=== PATIENT | female | born 1955 | race Caucasian/White ===

== ENCOUNTER 2020-02-04 11:13 | Outpatient (CLI) | payer BC, SELFPAY ==
--- NOTE | ~2020-02-04 | MMUS_ITS ---
EXAMINATION: MM diagnostic damien LT w phuong, US breast bilateral limited HISTORY: Follow-up breast masses TECHNIQUE: Additional 3-D tomosynthesis images of the left breast were performed and synthetic 2-D im ages were generated. CAD analysis was submitted and interpreted. High resolution bilateral breast ult rasound was performed. COMPARISON: Comparison to multiple prior studies sequentially, with oldest reviewed study dated 05/06. FINDINGS: MAMMOGRAPHIC FINDINGS: Breast composed of scattered areas of fibroglandular density. Stable benign-appearing masses in the u pper outer quadrant of the left breast. ULTRASOUND: Right breast ultrasound: At 8:00, 3 cm from the nipple there is a 4 mm cyst. At 9:00, 0.5 cm from the nipple, there is a 7 mm intramammary lymph node. Left breast ultrasound: At 12:00, 5.5 cm from the nipple there is a 6 mm cyst. At 2:00, 2 cm from the nipple, there is a 6 mm minimally complicated cyst. At 3:00, 0.5 cm from the nipple there is a small intramammary lymph node measuring 4 mm, unchanged. The small hypoechoic lesion in the left breast at 2:00 with antiparallel configuration is not identified on the current study. IMPRESSION: 1. No evidence for malignancy in either breast. Benign findings. 2. Routine yearly screening mammogram and regular clinical breast examination are recommended. BI-RADS Category 2: Benign finding(s). Reviewed, dictated and finalized at location A. IMPRESSION: 1. No evidence for malignancy in either breast. Benign findings. 2. Routine yearly screening mammogram and regular clinical breast examination a re recommended. BI-RADS Category 2: Benign finding(s).
== END 2020-02-04 11:14 | disposition home or self-care (01) ==
PROVIDERS: PCP Family Medicine; Visit Provider Obstetrics & Gynecology
DX: R92.8 Other abnormal and inconclusive findings on diagnostic imaging of breast (principal)
CPT/HCPCS: 76642; 77061; 77065; G0279

== ENCOUNTER 2020-06-06 12:38 | Outpatient (NON) | payer BC, SELFPAY ==
[2020-06-08 18:20] LABS: SARS-CoV-2 RNA PCR Negative
== END 2020-06-06 12:39 ==
LOC: ANHCOVIDDT 12:39
PROVIDERS: PCP Family Medicine; Visit Provider Physician Assistant
DX: Z20.828 Contact with and (suspected) exposure to other viral communicable diseases (principal); R05 Cough
CPT/HCPCS: 87635; C9803; U0003

== ENCOUNTER → 2021-07-25 10:17 | Outpatient (CLI) | payer MEDICARE, SELFPAY ==
--- NOTE | ~2021-07-25 | MM_ITS ---
EXAMINATION: MM screening [facility] BI w phuong HISTORY: Screening mammogram TECHNIQUE: Craniocaudal and mediolateral oblique 3-D tomosynthesis images were obtained and synthetic 2-D images were generated. CAD analysis was submitted and interpreted. COMPARISON: 02/04/2020, 08/13/2019, 07/25/2019, 07/23/2018 BREAST PARENCHYMAL COMPOSITION: There are scattered areas of fibroglandular density. FINDINGS: RIGHT BREAST: There are low-density masses in the middle third of the upper, slightly inner breast. LEFT BREAST: There is no evidence of suspicious mass, calcification, or architectural distortion to s uggest malignancy. There has been no significant interval change. IMPRESSION: 1. Right breast masses. 2. Additional mammographic views and possible breast ultrasound are recommended. BI-RADS Category 0: Incomplete: Needs additional imaging evaluation. Reviewed, dictated and finalized at location A. ESSING LEAD IMPRESSION: 1. Right breast masses. 2. Additional mammographic views and possible breast ultrasound are recommended . BI-RADS Category 0: Incomplete: Needs additional imaging evaluation.
== END ==
PROVIDERS: PCP Family Medicine; Visit Provider Obstetrics & Gynecology
DX: Z12.31 Encounter for screening mammogram for malignant neoplasm of breast (principal); R92.8 Other abnormal and inconclusive findings on diagnostic imaging of breast
CPT/HCPCS: 77063; 77067

== ENCOUNTER → 2021-08-02 09:16 | Outpatient (CLI) | payer MEDICARE, SELFPAY ==
--- NOTE | ~2021-08-02 | MMUS_ITS ---
EXAMINATION: MM diagnostic damien RT w phuong, US breast RT limited HISTORY: Follow-up right breast mass TECHNIQUE: Additional 3-D tomosynthesis images of the right breast were performed and synthetic 2-D i mages were generated. CAD analysis was submitted and interpreted. High resolution Limited right breas t ultrasound was performed. COMPARISON: 07/25/2021 BREAST PARENCHYMAL COMPOSITION: Breast composed of scattered areas of fibroglandular density FINDINGS: MAMMOGRAPHIC FINDINGS: There is a mass in the medial aspect of the right breast posteriorly. There are no suspicious calcifi cations or architectural distortion. ULTRASOUND: Limited right breast ultrasound: At 12:00, 5 cm from the nipple there is a 5 mm cyst. At 12:00, 4 cm from the nipple there is a 3 mm cyst. At 1:00, 3 cm from the nipple there is an oval hypoechoic mass with focal internal echogenic area. There is parallel orientation. There is posterior acoustic shadow ing with internal vascularity along the margin. This mass measures 6 x 5 x 4 mm. IMPRESSION: 1. Abnormal hypoechoic 6 mm left breast mass at 1:00, 3 cm from the nipple. 2. Ultrasound-guided right breast biopsy recommended. BI-RADS category 4, suspicious findings. Reviewed, dictated and finalized at location A. ERY HAND IMPRESSION: 1. Abnormal hypoechoic 6 mm left breast mass at 1:00, 3 cm from the nipple. 2. Ultrasound-guided right breast biopsy recommended. BI-RADS category 4, suspicious findings.
== END ==
PROVIDERS: PCP Family Medicine; Visit Provider Obstetrics & Gynecology
DX: R92.8 Other abnormal and inconclusive findings on diagnostic imaging of breast (principal)
CPT/HCPCS: 76642; 77061; 77065; G0279

== ENCOUNTER 2021-08-12 08:00 | Emergency (ER) | payer MEDICARE, SELFPAY ==
--- NOTE | ~2021-08-12 | XR_ITS ---
EXAMINATION: XR chest 1V portable DATE: 08/12/2021 08:59 INDICATION: Shortness of breath. Cough. TECHNIQUE: A single frontal view of the chest was obtained. COMPARISON: None. FINDINGS: The chest demonstrates clear lungs without pneumonia, pleural effusion, or pneumothorax. Th e heart size is normal. IMPRESSION: 1. No acute cardiopulmonary disease. Reviewed, dictated and finalized at location A. NE RESOURCE ECONOMIST
[2021-08-12 08:04] VITALS: BP 135/85; PULSE 115; RESP 18; TEMP 36.7; O2SAT 100
--- NOTE | 2021-08-12 08:40 | ED.SOB ---
HPI - SOB/Dyspnea General Chief Complaint: Shortness of Breath/Dyspnea Stated Complaint: dysnpea Time Seen by Provider: 08/12/21 08:06 Source: patient and RN notes reviewed Mode of arrival: ambulatory Limitations: no limitations History of Present Illness HPI Narrative: This is a 66 year old female who presents for evaluation of cough and shortness of breath. Patient was exposed to daughter and grandchild last weekend who were found to have covid. Patient developed symptoms of possible covid on Saturday. She reports sore throat, cough and shortness of breath. She took an at home test on Saturday that was negative for covid. She states last night she was having worsening difficulty breathing and she felt like she needed to sit up. She denies nausea, vomiting, fever, chest pain or abdominal pain. Related Data Allergies Allergy/AdvReac Type Severity Reaction Status Date / Time No Known Allergies Allergy Verified 08/12/21 08:29 Review of Systems Review of Systems: All systems reviewed & are unremarkable except as noted in HPI and below PMFSH Past Medical History Medical History (Updated 08/12/21 @ 11:38 by Mariaa Law MD) Cough Essential hypertension Hypothyroidism Stenosis of larynx Family History Family History Sibling Hypertension Mother Family history of kidney disease Father Family history of lung disease Social History Social History (Updated 06/22/21 @ 13:22 by Rylee Bernard MA) Smoking status: Never smoker Second hand tobacco smoke exposure: No Alcohol intake: current Alcohol use details: rare Substance use: never Substance use type: does not use Gender identity (if verbalized by the patient): Female Sexual Orientation (if Verbalized by the Patient): Straight or Heterosexual Exam Const: General: no acute distress and alert Orientation/consciousness: patient oriented x3 HENMT: Head: normocephalic and atraumatic Face and sinus: normal facial exam, sinuses nontender and face symmetric Mouth: Yes Normal oral and palatal mucosa present, Yes lip normal, Yes tongue normal and Yes moist mucous membranes Throat: posterior oropharynx normal, tonsils normal and uvula midline Chest: Chest palpation & inspection: normal inspection of the chest Resp: Effort & Inspection: normal respiratory effort and no retractions Auscultation: clear to auscultation bilaterally Other: no stridor Cardio: Rate: tachycardic Rhythm: regular rhythm Heart sounds: no murmurs GI: GI Palp: Yes Soft to palpation, No Tenderness to palpation present (GI) and No Guarding due to palpation present (GI) Auscultation: normal bowel sounds Back/Spine/Pelvis: Back: no CVA tenderness Skin: General skin exam: normal color Rashes: no rashes Neuro: General: patient oriented x3, moves all extremities and CN's II-XI intact bilaterally Extrem: General: normal to inspection and no pedal edema Psych: Mental Status: mental status grossly normal Affect: normal affect Course Reevaluation(s) Reevaluation #1: I Discussed with patient that she will be discharged and she is positive for covid. I ambulated patient and she maintained oxygenation at 99% with walking. No respiratory distress. She states she feels better after using inhaler. Date: 08/12/21 Time: 11:37 Vital Signs Vital signs: Vital Signs Temperature 98.0 F 08/12/21 08:04 Pulse Rate 115 H 08/12/21 08:04 Respiratory Rate 18 08/12/21 08:04 Blood Pressure 135/85 08/12/21 08:04 Pulse Oximetry 100 08/12/21 08:04 Temperature 98.0 F 08/12/21 08:04 Pulse Rate 92 08/12/21 11:49 Respiratory Rate 16 08/12/21 11:49 Blood Pressure 138/70 08/12/21 11:49 Pulse Oximetry 98 08/12/21 11:49 MDM - SOB/Dyspnea Lab Data Attestation: I reviewed the patient's lab results. Result diagrams: 08/12/21 10:53 08/12/21 10:53 Labs: Lab Resu
[2021-08-12] MEDS: ALBUTEROL SULFATE (*SP) AEROSOL 1 PUFF 4 PUFF INHALATION (09:22)
[2021-08-12 09:33] LABS: SARS-CoV-2 RNA PCR Positive
[2021-08-12 09:34] LABS: Alveolar/Arterial O2 Gradient 16.8 mmHg; Base Excess ABG -0.5 mEq/l (+/-2.0); Carboxyhemoglobin 0.2 % THb (0-2.0); Fractional Inspired Oxygen 21 %; HCO3 ABG 23.8 mEq/l (22.0-26.0); Methemoglobin ABG 0.3 %THb (0-1.5); Oxygen Saturation ABG 96.8 % (95.0-100.0); Oxyhemoglobin 95.6 % THb (90.0-100.0); PO2 ABG 87.4 mmHg (80.0-100.0); PO2 FiO2 Ratio Arterial Blood 4.16 %; Reduced Hemoglobin 3.9 %THb (0-5.0); Total Hemoglobin 14.1 g/dL (12.0-18.0); pH ABG 7.415 (7.350-7.450)
[2021-08-12 09:35] LABS: Device ROOM AIR; Site Drawn LEFT BRACHIAL
[2021-08-12 11:00] LABS: Basophils Percent Auto 0.4 % (0.2-1.2); Eosinophils Percent Auto 0.2 % (0-4.4); Hemoglobin 13.9 g/dL (12.0-15.0); Immature Granulocyte Absolute 0.04 K/mm3 (0.00-0.031); Immature Granulocyte Percent A 0.5 % (0-0.5); Lymphocytes Absolute Auto 1.36 K/mm3 (0.9-3.2); Lymphocytes Percent Auto 16.4 % (18.3-44.2); Mean Corpuscular HGB Conc 33.1 g/dl (32-36); Mean Corpuscular Hemoglobin 29.8 pg (26-34); Mean Corpuscular Volume 90.1 fl (80-100); Mean Platelet Volume 9.9 fl (7.4-10.4); Monocytes Absolute Auto 0.7 K/mm3 (0.1-0.6); Monocytes Percent Auto 8.4 % (2.6-8.5); Neutrophils Absolute Auto 6.2 K/mm3 (1.3-6.7); Neutrophils Percent Auto 74.1 % (45.5-73.1); Platelet Count Result 187 k/mm3 (150-375); Red Blood Count 4.66 M/mm3 (4.2-5.4); Red Cell Distribution Width 12.1 % (11.5-14.5); White Blood Count 8.3 K/mm3 (4.5-10.0)
[2021-08-12 11:09] LABS: Partial Thromboplastin Time 25.5 SECONDS (22.3-36.8)
[2021-08-12 11:13] LABS: Alanine Aminotransferase 19 U/L (4-35); Albumin Level 4.7 g/dL (3.5-5.1); Alkaline Phosphatase 90 U/L (38-126); Anion Gap 12 mmol/L (8-16); Aspartate Amino Transferase 26 U/L (14-36); Bilirubin,Total 0.4 mg/dL (0.2-1.3); Blood Urea Nitrogen 17 mg/dL (7-17); CRP 1.7 mg/dL (<1.0); Calcium 9.5 mg/dL (8.4-10.2); Carbon Dioxide 27 mmol/L (22-30); Chloride 99 mmol/L (98-107); Estimated CRCL calculation 50 ml/min; Estimated Glomerular Filt Rate > 60; Glucose 136 mg/dL (65-110); Potassium 3.9 mmol/L (3.4-5.0); Sodium 138 mmol/L (137-145)
[2021-08-12 11:15] LABS: D Dimer 0.27 ug/mL (<0.48)
[2021-08-12 11:49] VITALS: BP 138/70; PULSE 92; RESP 16; O2SAT 98
== END 2021-08-12 11:54 | disposition home or self-care (01) ==
PROVIDERS: Emergency Provider General Practice; PCP Family Medicine
DX: U07.1 COVID-19 (principal); J06.9 Acute upper respiratory infection, unspecified; I10 Essential (primary) hypertension; E03.9 Hypothyroidism, unspecified
CPT/HCPCS: 36415; 36600; 71045; 80053; 82375; 82805; 83050; 85025; 85380; 85610; 85730; 86140; 87804; 99283; A9270; C9803; U0003; U0005

== ENCOUNTER → 2021-10-20 18:01 | Outpatient (CLI) | payer MEDICARE, SELFPAY ==
--- NOTE | ~2021-10-20 | DEXA_ITS ---
Bone Density Report Name: ALICE CHOW Age: 66 Sex: Female Ethnicity: White Date of : 1955 Indication: monitoring treatment; hysterectomy; postmenopausal Referring Provider: Andreina, Tammie Brantley Study: Bone densitometry was performed. Exam Date: October 20, 2021 Accession number: [id number] Bone Density: Region BMD T-score Z-score Classification AP Spine (L1-L4) 1.302 2.3 4.1 Normal Femoral Neck (Left) 0.761 -0.8 0.7 Normal Total Hip (Left) 1.033 0.7 2.0 Normal Femoral Neck (Right) 0.702 -1.3 0.2 Osteopenia Total Hip (Right) 0.959 0.1 1.4 Normal Total Hip Mean 0.996 0.4 1.7 Normal World Health Organization criteria for BMD impression classify patients as: Normal (T-score at or above -1.0), Osteopenia (T-score between -1.0 and -2.5), or Osteoporosis (T-score at or below -2.5). 10-year Fracture Risk: FRAX not reported because: Treated for osteoporosis Previous Exams: Region Exam Age BMD T-score BMD Change BMD Change Date g/cm2 vs Baseline vs Previous AP Spine(L1-L4) 10/20/2021 66 1.302 2.3 0.058* 0.058* 12/16/2012 57 1.244 1.8 Total Hip(Left) 10/20/2021 66 1.033 0.7 0.025 0.025 12/16/2012 57 1.008 0.5 Total Hip(Right) 10/20/2021 66 0.959 0.1 0.006 0.006 12/16/2012 57 0.953 0.1 *Denotes significance at 95% confidence level, LSC for AP Spine = 0.022 g/cm2, LSC for Total Hip = 0.027 g/cm2 Clinical Information Provided by Patient: Is being treated for osteoporosis Has used the following medications: HRT (i.e. estrogen/hormone therapy), Levothyroxine Has the following medical conditions: Hysterectomy Patient maximum height was 64.0 Menopause Age: 51 No regular weight bearing exercise Drinks caffeinated beverages Onset of menses at age 11 Number of children 2 Impression: The patient has low bone mass, based on the Right Femoral Neck T-score. No significant bone loss was observed. Discussion: PATIENT UNDER TREATMENT WITH NO SIGNIFICANT BMD LOSS SINCE LAST EXAM. In an untreated patient, BMD typically declines with age. A lack of decline or gain is usually a sign that treatment is efficacious and fracture risk is reduced. It is important to ask patients whether they are taking their medications and to encourage continued and appropriate compliance with their osteoporosis therapies to reduce fracture risk. It is also important to review their risk factors and enc
== END ==
PROVIDERS: PCP Family Medicine; Visit Provider Nurse Practitioner Obstetrics & Gynecology
DX: M85.88 Other specified disorders of bone density and structure, other site (principal); M85.851 Other specified disorders of bone density and structure, right thigh
CPT/HCPCS: 77080

== ENCOUNTER 2022-06-12 15:34 | Observation (INO) | payer MEDICARE, SELFPAY ==
[2022-06-12] VITALS (23 sets, daily range): BP systolic 107–185; BP diastolic 59–93; PULSE 56–115; RESP 13–28; TEMP 36.5; O2SAT 98–100; BMI 20.2
--- NOTE | ~2022-06-12 | US_ITS ---
EXAMINATION: US carotid duplex BI DATE: 06/13/2022 17:00 INDICATION: Syncope. TECHNIQUE: Grayscale, color Doppler, and pulsed Doppler images of the cervical carotid arteries were obtained. The degree of vessel stenosis is placed in one of the following categories: normal, <50%, 5 0-69%, >=70% but less than near-occlusion, near-occlusion, or total occlusion. Note that percent sten osis relative to normal distal artery lumen diameter is indirectly measured from velocity measurement s as described by Anish, et al. Radiology 2003; 229:340-346. COMPARISON: None. FINDINGS: RIGHT: The right common carotid artery (CCA) peak systolic velocity (PSV) is 81 cm/s. The right internal car otid artery (ICA) PSV is 131 cm/s. The right ICA end-diastolic velocity (EDV) is 43 cm/s. The right I CA/CCA PSV ratio is 1.6. Grayscale and color Doppler images yield an estimate of <50% diameter reduct ion from plaque in the ICA. There is antegrade flow in the right vertebral artery. LEFT: The left CCA PSV is 75 cm/s. The left ICA PSV is 117 cm/s. The left ICA EDV is 35 cm/s. The left ICA/ CCA PSV ratio is 1.6. Grayscale and color Doppler images yield an estimate of <50% diameter reduction from plaque in the ICA. There is antegrade flow in the left vertebral artery. IMPRESSION: 1. <50% stenosis in the right internal carotid artery. 2. <50% stenosis in the left internal carotid artery. Reviewed, dictated and finalized at location A. FERTILIZER
--- NOTE | ~2022-06-12 | CT_ITS ---
EXAMINATION: CT brain wo con DATE: 06/12/2022 17:59 INDICATION: syncope, head trauma . TECHNIQUE: Computed tomography (CT) of the head was performed without intravenous contrast. The mA wa s adjusted according to patient size. Iterative reconstruction technique was employed. The dose-lengt h product was 605.33 mGy-cm. COMPARISON: 11/15/2018 FINDINGS: No acute intracranial hemorrhage or extra-axial fluid collection. No hydrocephalus, mass, or herniation. No acute ischemic infarct. Unremarkable dural venous sinus attenuation. No acute osseous abnormality. The aerated spaces are clear. Mild intracranial atherosclerotic calcification. Mild chronic white matter change. IMPRESSION: No acute intracranial process. Reviewed, dictated and finalized at location K. PLE WORKER
--- NOTE | ~2022-06-12 | CT_ITS ---
EXAMINATION: CT abdomen pelvis w con DATE: 06/12/2022 17:59 INDICATION: abdominal pain, bloody diarrhea TECHNIQUE: Computed tomography (CT) of the abdomen and pelvis was performed with 100 mL Omnipaque-350 intravenous contrast. Automated exposure control and iterative reconstruction technique were employe d. The dose-length product was 299.28 mGy-cm. COMPARISON: 11/15/2018. FINDINGS: Lower thorax: Small hiatal hernia. Liver: Normal. Biliary/Gallbladder: Gallbladder is normal. No bile duct dilation. Pancreas: No mass or duct dilation. Spleen: Normal. Adrenals:No mass. Kidneys: No mass, stone, or hydronephrosis. GI tract: Distal esophageal and gastric wall edema, as can be seen with esophagitis/gastritis. Absent mucosal enhancement in the hepatic flexure and descending colon. No small or large bowel dilation. F luid-filled colon as can be seen with diarrheal illness. Colonic wall edema extending from the transv erse colon to the distal sigmoid. Normal appendix. Mesentery/Peritoneum: No ascites, mass, or free air. Retroperitoneum: No mass. Atherosclerotic abdominal aortic and/or arterial calcifications. Pelvis: Pelvic organs. Are within normal limits. Trace free pelvic fluid uterus absent. Soft Tissues: Subcutaneous fat stranding over the left inguinal canal, possibly related to contusion or line placement. Bones: No acute osseous finding. IMPRESSION: Colitis, with CT findings concerning for bowel ischemia in the descending colon. Reviewed, dictated and finalized at location K. NGER IMPRESSION: Colitis, with CT findings concerning for bowel ischemia in the desc ending colon.
--- NOTE | ~2022-06-12 | XR_ITS ---
EXAMINATION: XR chest 1V portable INDICATION: Transient alteration of awareness TECHNIQUE: Portable AP chest at 1646 hours COMPARISON: 08/12/2021 FINDINGS: The lungs are free of acute opacities. No pleural effusion or pneumothorax. The cardiomedia stinal silhouette is normal. The visualized bones and soft tissues are unremarkable. IMPRESSION: 1. No acute cardiopulmonary abnormality. Reviewed, dictated and finalized at location B. TESTER
--- NOTE | ~2022-06-12 | XR_ITS ---
EXAMINATION: XR abdomen obstructive series DATE: 06/13/2022 16:09 INDICATION: Colitis. TECHNIQUE: Upright and supine views of the abdomen were obtained. COMPARISON: CT abdomen and pelvis 06/12/2022 FINDINGS: There are no dilated loops of bowel. There is a small volume of stool in the colon. No free intraperitoneal gas. IMPRESSION: 1. Nonobstructive bowel gas pattern. Reviewed, dictated and finalized at location A. UATE RN
--- NOTE | 2022-06-12 15:53 | ECG_ITS ---
Measurements Intervals [place] Rate: 61 P: 66 UT: 147 QRS: 22 QRSD: 86 T: 61 QT: 386 QTc: 390 Interpretive Statements SINUS RHYTHM WITH SINUS ARRHYTHMIA ANTEROSEPTAL INFARCT, AGE INDETERMINATE BASELINE ARTIFACT- I, II, III, AVR, AVL, AVF, V1 ABNORMAL ECG COMPARED TO ECG 11/15/2018 14:03:06 SINUS RHYTHM NOW PRESENT SINUS ARRHYTHMIA NOW PRESENT Electronically Signed On 06-12-2022 16:25:33 PHARMACY CONSULTANT by Yobani Dooley D.O.
--- NOTE | 2022-06-12 16:22 | ED.SYNCOPE ---
HPI - Syncope General Chief Complaint: Syncope Stated Complaint: syncopals Time Seen by Provider: 06/12/22 16:02 History of Present Illness HPI narrative: Patient is a 67-year-old female with a history of hypothyroidism, hypertension presenting with syncope. Patient was at her best friends earlier today. She then went to her daughter's house to watch her grandson. When her son-in-law got home she had a syncopal event. Her son-in-law was concerned that she was not breathing so he did CPR until she woke up. Patient states that before this episode she had diarrhea. EMS was called and found her to have a systolic blood pressure of 65. She then had another syncopal episode prior to be and transported here. Currently, patient complains that she is having abdominal cramping and she needs to have a bowel movement. She denies recent fevers, chest pain, shortness of breath, palpitations, dysuria. States that she has had several episodes of diarrhea and 1 episode of emesis today. Related Data Allergies Allergy/AdvReac Type Severity Reaction Status Date / Time No Known Allergies Allergy Verified 02/27/22 09:27 Review of Systems Review of Systems: All systems reviewed & are unremarkable except as noted in HPI and below PMFSH Past Medical History Medical History (Updated 06/21/22 @ 17:24 by Cadence Boss MD) Colitis Cough Essential hypertension Hypothyroidism Leukocytosis Stenosis of larynx Surgical History Surgical History (Updated 06/13/22 @ 12:31 by Kendrick Sainz MD) History of laryngoscopy for stenosis of sub glottal larynx /trachea History of vaginal hysterectomy Family History Family History Sibling Hypertension Mother Family history of kidney disease Father Family history of lung disease Social History Social History Smoking status: Never smoker Second hand tobacco smoke exposure: No Alcohol intake: never Alcohol use details: rare Substance use: never Substance use type: does not use Lack of Transportation: No Lack of Food: Never True Current Housing: I Have Housing Concerned About Future Housing: No Difficulty Paying Gas/Electric Bills: No Difficulty Paying for Meds: No Currently Unemployed: No Education: Trade/Vocational Certificate Difficulty w/ Childcare or Family Care: No Gender identity (if verbalized by the patient): Female Sexual Orientation (if Verbalized by the Patient): Straight or Heterosexual Spiritual care concerns: No Exam Narrative: GENERAL: Pale appearing, nontoxic, in no acute distress HEAD: Normocephalic, laceration to chin, ecchymosis left cheek EYES: PERRLA and EOMI. ENT: Nares clear, no rhinorrhea or epistaxis. Mucous membranes moist. NECK: Supple. CHEST: Clear to auscultation. No respiratory distress. HEART: Regular rate and rhythm. No murmur heard. Normal peripheral pulses. ABDOMEN: Soft, nontender, nondistended, normal active bowel sounds. EXTREMITIES: Normal range of motion. No edema. SKIN: Warm, dry, no rash. NEURO: No focal deficits. Alert and oriented x3. PSYCH: Normal mood and affect. Course Vital Signs Vital signs: Vital Signs Pulse Rate 59 L 06/12/22 15:34 Respiratory Rate 19 06/12/22 15:34 Blood Pressure 125/59 L 06/12/22 15:34 Pulse Oximetry 99 06/12/22 15:34 Oxygen Delivery Room Air 06/12/22 15:34 Temperature 96.0 F L 06/14/22 14:10 Pulse Rate 76 06/14/22 14:10 Respiratory Rate 18 06/14/22 14:10 Blood Pressure 141/70 H 06/14/22 14:11 Pulse Oximetry 100 06/14/22 14:10 Oxygen Delivery Room Air 06/13/22 20:00 Procedures Laceration Laceration 1: Date: 06/12/22 Site: face Size (cm): 2 Description: linear Depth: simple, single layer Local Anesthetic: lidocaine 1% Pre-repair: irrigated ======
[2022-06-12 16:33] LABS: Alanine Aminotransferase 20 U/L (6-35); Albumin Level 4.3 g/dL (3.5-5.1); Alkaline Phosphatase 162 U/L (38-126); Anion Gap 14 mmol/L (8-16); Aspartate Amino Transferase 29 U/L (14-36); Bilirubin,Total 0.6 mg/dL (0.2-1.3); Blood Urea Nitrogen 17 mg/dL (7-17); Calcium 9.2 mg/dL (8.4-10.2); Carbon Dioxide 25 mmol/L (22-30); Chloride 103 mmol/L (98-107); Estimated CRCL calculation 52 ml/min; Estimated Glomerular Filt Rate > 60; Glucose 148 mg/dL (65-110); Potassium 3.9 mmol/L (3.4-5.0); Sodium 142 mmol/L (137-145)
[2022-06-12 16:34] LABS: Basophils Percent Auto 0.4 % (0.2-1.2); Eosinophils Absolute Auto 0.1 K/mm3 (0-0.3); Eosinophils Percent Auto 1.1 % (0-4.4); Hematocrit 45.1 % (37.0-47.0); Hemoglobin 14.6 g/dL (12.0-15.0); Immature Granulocyte Absolute 0.03 K/mm3 (0.00-0.031); Immature Granulocyte Percent A 0.3 % (0-0.5); Lymphocytes Percent Auto 24.7 % (18.3-44.2); Mean Corpuscular HGB Conc 32.4 g/dl (32-36); Mean Corpuscular Hemoglobin 29.9 pg (26-34); Mean Corpuscular Volume 92.4 fl (80-100); Mean Platelet Volume 9.9 fl (7.4-10.4); Monocytes Absolute Auto 0.5 K/mm3 (0.1-0.6); Monocytes Percent Auto 5.3 % (2.6-8.5); Neutrophils Absolute Auto 6.1 K/mm3 (1.3-6.7); Neutrophils Percent Auto 68.2 % (45.5-73.1); Platelet Count Result 232 k/mm3 (150-375); Red Blood Count 4.88 M/mm3 (4.2-5.4); Red Cell Distribution Width 12.4 % (11.5-14.5); White Blood Count 8.9 K/mm3 (4.5-10.0)
[2022-06-12] MEDS: ONDANSETRON INJ 4 MG/2 ML VIAL IV PUSH (16:36)
[2022-06-12] MEDS: SODIUM CHLORIDE 0.9% IV 1,000 ML 999 ML IV CONT (17:13)
--- NOTE | 2022-06-12 17:13 | PC.NURSE ---
EDP aware patient received 1L of fluids initiated by EMS. Per EDP, okay to start second bag of fluid.
[2022-06-12 17:29] LABS: Lactic Acid Reflex 1.4 mmol/L (0.7-2.0)
--- NOTE | 2022-06-12 17:34 | PC.NURSE ---
Attempting to take patient to CT. Patient continues to have large episodes of loose stool. DAYANARAP Karyn aware.
[2022-06-12 17:52] LABS: Influenza A QL RT-PCR Negative (Negative); Influenza B QL RT-PCR Negative (Negative); SARS-CoV-2 RNA PCR Negative
--- NOTE | 2022-06-12 18:01 | PC.NURSE ---
Patient's linen and diapers have been changed multiple times. Patient continues to have liquid stools.
[2022-06-12 18:19] LABS: Magnesium 2.2 mg/dL (1.6-2.3)
--- NOTE | 2022-06-12 18:28 | PC.NURSE ---
Patient continues to be incontinent with bladder and bowel, EDP Boss notified. Per EDP, okay to initiate indwelling catheter to monitor output.
[2022-06-12 18:32] LABS: Troponin I < 0.012 ng/mL (0.000-0.034)
--- NOTE | 2022-06-12 18:44 | PC.NURSE ---
Per EDKaron Boss, no orthostatic blood pressures needed.
[2022-06-12 19:04] LABS: Appearance Urine Clear (Clear); Bilirubin Urine Negative (Negative); Blood Urine Negative (Negative); Color Urine Yellow (Yellow); Glucose Urine UA Negative (Negative); Ketones Urine Trace mg/dL (Negative); Leukocyte Esterase Ur Negative LEU/UL (Negative); Nitrate Urine Negative (Negative); Protein Urine Negative (Negative); Specific Grav Ur <= 1.005 (1.001-1.035); Urobilinogen Urine 0.2 mg/dL (<2.0)
[2022-06-12 19:23] LABS: Add Urine Microscopic? YES; RBC Urine 0-2 /hpf (0-2); Squamous Epithelial Cell Urine Rare /hpf (Few); WBC Urine 0-3 /hpf
--- NOTE | 2022-06-12 19:33 | PC.NURSE ---
Patient cleaned up at this time
--- NOTE | 2022-06-12 20:32 | PM.IMHP ---
H&P: HPI History of Present Illness Date/Time: 06/12/22 20:32 Chief Complaint: Syncope Narrative: This is a 67-year-old female with past medical history significant for hypothyroidism, hypertension. patient comes to the emergency room after having a syncopal episode has been having too numerous to count diarrhea daily denies any vomiting has some nausea no abdominal pain, no coffee-ground emesis, no hematemesis, no bright red blood per rectum, no melena, no fevers, no rigors, no chills, she has had unintentional weight loss due to a stress over the course of a year. She states that she is in a 10 year plan for her colonoscopy as her previous 1 was normal, denies any changes in her list stool character. preliminary workup was significant for CT of abdomen and pelvis was reported as: IMPRESSION: Colitis, with CT findings concerning for bowel ischemia in the descending colon. Chest x-ray was reported as: IMPRESSION: 1. No acute cardiopulmonary abnormality head CT was reported as; IMPRESSION:? No acute intracranial process. Review of Systems Review of Systems: too numerous to count diarrhea episodes, syncopal episode. Constitutional: Constitutional: Denies chills, Denies fatigue, Denies fever(s), Denies lethargy, Denies malaise, Denies night sweats, Denies poor appetite, Denies weakness and Reports weight loss Eyes: Eyes: Denies change in vision ENT: Denies dysphagia, Denies vertigo, Denies dizziness and Denies odynophagia Cardiovascular: Cardiovascular: Denies chest pain, Denies leg edema and Denies dyspnea Respiratory: Respiratory: Denies chest congestion and Denies cough Gastrointestinal: Gastrointestinal: Denies abdominal pain, Denies melena, Denies hematochezia, Denies change in stool character, Denies dyspepsia, Denies heartburn, Reports diarrhea, Reports nausea and Denies vomiting Genitourinary: Genitourinary: Denies dysuria Musculoskeletal: Musculoskeletal: Denies deformity, Denies arthralgias and Denies limited range of motion Integumentary/Breasts: Skin/Breast: Denies rash Neurologic: Denies vertigo, Denies dizziness, Denies focal weakness and Denies Sensory deficit (Neuro) Psychiatric: Psychiatric: Reports no additional psychiatric complaints and Reports as per HPI Endocrine: Endocrine: Reports no additional endocrine complaints and Reports as per HPI Hematologic/Lymphatic: Hematologic/Lymphatic: Reports no additional hematologic/lymphatic complaints and Reports as per HPI Allergic/Immunologic: Allergic/Immunologic: Reports no additional allergic/immunologic complaints and Reports as per HPI [facility] Past Medical History Medical History Cough Essential hypertension Hypothyroidism Stenosis of larynx Family History Family History Sibling Hypertension Mother Family history of kidney disease Father Family history of lung disease Social History Social History Smoking status: Never smoker Second hand tobacco smoke exposure: No Alcohol intake: never Alcohol use details: rare Substance use: never Substance use type: does not use Lack of Transportation: No Lack of Food: Never True Current Housing: I Have Housing Concerned About Future Housing: No Difficulty Paying Gas/Electric Bills: No Difficulty Paying for Meds: No Currently Unemployed: No Education: Trade/Vocational Certificate Difficulty w/ Childcare or Family Care: No Gender identity (if verbalized by the patient): Female Sexual Orientation (if Verbalized by the Patient): Straight or Heterosexual Spiritual care concerns: No Meds Home Medications and Allergies Home Medications Medication Instructions Recorded Confirmed Type estradiol 0.0375 mg/24 hr 1 patch transdermal 2XW #1 ea 06/30/19 06/12/22 Rx semiweekly transder
[2022-06-12] MEDS: TETANUS,DIPHTHERIA,AC PERTUSSIS ADULT (0.5 ML) BOOSTRIX IM (21:49)
[2022-06-12] MEDS: SODIUM CHLORIDE 0.9% IV 1,000 ML 125 ML IV CONT (22:40)
--- NOTE | 2022-06-12 22:50 | ADMGEN ---
This patient, Vito Fuentes, was admitted to [facility] Surg Room 306-02. Patient/family oriented to hospital policies and general routines including ID bracelet, bed and alarms, visiting hours, pain management, procedures, bathroom and other care routines, personal items, smoking policy, room service/diet, and visiting hours. Information on how to activate the Rapid Response Team has been discussed. Patient/Family are encouraged to report perceived risks to care and to ask questions if they do not understand what they are told or what they should do.
[2022-06-12 23:25] LABS: Troponin I < 0.012 ng/mL (0.000-0.034)
[2022-06-13] VITALS (11 sets, daily range): BP systolic 130–152; BP diastolic 52–72; PULSE 63–98; RESP 16–20; TEMP 36.9–37.4; O2SAT 97–100
--- NOTE | 2022-06-13 | ECHO_ITS ---
Patient Info Name: Vito Fuentes Age: 67 years : 1955 Gender: Female Ht: 64 in Wt: 117 lbs BSA: 1.55 m2 HR: 72 bpm BP: 136 / 52 mmHg Heart Rhythm: Sinus Rhythm Technical Quality: Fair Exam Date: 06/13/2022 2:44 PM Exam Location: [facility] Patient Status: Outpatient Admit Date: 06/12/2022 Staff Ordering Physician: Mary Almendarez PA-C [employer] Advisor: Yeny Navarro RDCS Attending Provider: Bradley Landis MD Referring Physician: Erickson HARRIS; Exam Type: CA echo doppler color flow Study Info Indications R55 - Syncope and collapse Complete two-dimensional, color flow and Doppler transthoracic echocardiogram is performed. Summary 1. Complete two-dimensional, color flow and Doppler transthoracic echocardiogram is performed. 2. Left ventricular chamber dimension is normal. 3. Left ventricular systolic function is normal, estimated at 65-70%. 4. The left ventricular diastolic function is grade I diastolic dysfunction. 5. E/e' 7 is not elevated. 6. No pulmonary hypertension, estimated pulmonary arterial systolic pressure is 29 mmHg. Left Ventricle E/e' 7 is not elevated. Left ventricular chamber dimension is normal. Left ventricular systolic function is normal, estimated at 65-70%. The left ventricular diastolic function is grade I diastolic dysfunction. Right Ventricle Right ventricular systolic function is normal and with normal TAPSE 2.6 cm. Right ventricular chamber dimension is normal. Left Atria Left atrial chamber dimension is normal. Right Atria Right atrial chamber dimension is normal. Aortic Valve The aortic valve is trileaflet. There is no aortic valve stenosis. There is no aortic valve regurgitation. Pulmonic Valve There is no pulmonic regurgitation. Mitral Valve There is no mitral valve stenosis. There is no mitral valve regurgitation. Tricuspid Valve There is no tricuspid valve regurgitation. No pulmonary hypertension, estimated pulmonary arterial systolic pressure is 29 mmHg. Pericardium/Pleural There is no pericardial effusion. Inferior Vena Cava Normal inferior vena cava with >50% collapse upon inspiration consistent with normal right atrial pressure, 5 mmHg. Aorta The aortic root size at the sinus of Valsalva is normal. Left Ventricular Outflow Tract Name Value Normal LVOT 2D LVOT Diameter 2.0 cm LVOT Doppler LVOT Peak Gradient 5 mmHg LVOT Mean Gradient 2 mmHg LVOT VTI 20 cm LVOT VTI/AV VTI Ratio 0.7 LVOT Stroke Volume 61 ml LVOT CO 4.3 l/min LVOT CI 2.8 l/min/m2 Pulmonic Valve Name Value Normal RVOT Doppler RVOT Peak Gradient 2 mmHg
[2022-06-13] MEDS: LEVOTHYROXINE SODIUM 50 MCG TABLET FEED TUBE (06:39)
[2022-06-13] MEDS: SODIUM CHLORIDE 0.9% IV 1,000 ML 125 ML IV CONT (06:57)
[2022-06-13 08:23] LABS: Basophils Percent Auto 0.3 % (0.2-1.2); Hematocrit 38.2 % (37.0-47.0); Hemoglobin 12.3 g/dL (12.0-15.0); Immature Granulocyte Absolute 0.07 K/mm3 (0.00-0.031); Immature Granulocyte Percent A 0.5 % (0-0.5); Lymphocytes Absolute Auto 1.17 K/mm3 (0.9-3.2); Lymphocytes Percent Auto 7.7 % (18.3-44.2); Mean Corpuscular HGB Conc 32.2 g/dl (32-36); Mean Corpuscular Hemoglobin 29.9 pg (26-34); Mean Corpuscular Volume 92.7 fl (80-100); Mean Platelet Volume 9.9 fl (7.4-10.4); Monocytes Percent Auto 6.8 % (2.6-8.5); Neutrophils Absolute Auto 12.9 K/mm3 (1.3-6.7); Neutrophils Percent Auto 84.7 % (45.5-73.1); Platelet Count Result 218 k/mm3 (150-375); Red Blood Count 4.12 M/mm3 (4.2-5.4); Red Cell Distribution Width 12.7 % (11.5-14.5); White Blood Count 15.2 K/mm3 (4.5-10.0)
--- NOTE | 2022-06-13 09:47 | PM.IMPN ---
Progress Note: A&P Assessment and Plan (1) Syncope and collapse: Code(s): R55 - Syncope and collapse Status: Acute Assessment and Plan: telemetry CT abdomen and pelvis revealed colitis with possible ischemia in descending colon echo, US carotids b/l and orthostatics ordered and pending for syncope workup (2) Diarrhea: Code(s): R19.7 - Diarrhea, unspecified Status: Acute Assessment and Plan: continue to monitor questionable bowel ischemia general surgery has been consulted-spoke with Dr. Sainz, he states that he does not believe patient has ischemic bowel. Dr. Sainz agrees with the course of antibiotic treatment and a GI consult in the morning. Differentials include viral or bacterial colitis, ischemic bowel, chronic ischemia, inflammatory bowel. GI has been consulted stool studies pending blood culture pending C. diff negative WBC count today was 15.2, starting on 750 mg Levaquin and 500 mg Flagyl Lactate today within normal limits (3) Essential hypertension: Code(s): I10 - Essential (primary) hypertension Status: Acute Assessment and Plan: holding blood pressure medications (4) Hypothyroidism: Qualifiers: Hypothyroidism type: unspecified Qualified Code(s): E03.9 - Hypothyroidism, unspecified Code(s): E03.9 - Hypothyroidism, unspecified Status: Acute Assessment and Plan: continue levothyroxine TSH 1.4 (5) Laceration: Status: Acute Assessment and Plan: Patient has laceration on the chin, sutures were placed in the ER on 06/12/2022 Suture site looks clean and healing well Patient has some bruising: Cheekbones Patient states tenderness to the head her she had fallen and hit it CT head revealed no acute intracranial process Time Spent With Patient Time with patient: Greater than 35 minutes Subjective Date/time seen: 06/13/22 09:47 Interval history: Patient sitting up in bed awake and alert. Patient's also in the room with her. Patient states it is okay if I speak freely in front of her . Review of Systems Constitutional: Constitutional: Denies chills, Denies fatigue, Denies fever(s), Denies lethargy, Denies malaise, Denies night sweats, Denies poor appetite, Denies weakness and Reports weight loss Eyes: Eyes: Denies change in vision ENT: Denies dysphagia, Denies vertigo, Denies dizziness and Denies odynophagia Cardiovascular: Cardiovascular: Denies chest pain, Denies leg edema and Denies dyspnea Respiratory: Respiratory: Denies chest congestion, Denies cough and Denies dyspnea Gastrointestinal: Gastrointestinal: Denies abdominal pain, Denies melena, Denies hematochezia, Denies change in stool character, Denies dysphagia, Denies dyspepsia, Denies heartburn, Reports diarrhea, Reports nausea, Denies odynophagia and Denies vomiting Genitourinary: Genitourinary: Denies dysuria Musculoskeletal: Musculoskeletal: Denies deformity, Denies arthralgias and Denies limited range of motion Integumentary/Breasts: Skin/Breast: Denies rash and Reports wounds Comments: Patient has bruising on her face due to fall. Sutures applied in the ER on her chin due to fall. Patient has tenderness on cheek bones and head. Neurologic: Denies vertigo, Denies dizziness, Denies focal weakness, Denies Sensory deficit (Neuro) and Denies weakness Psychiatric: Psychiatric: Reports no additional psychiatric complaints and Reports as per HPI Endocrine: Endocrine: Reports no additional endocrine complaints, Reports as per HPI and Denies fatigue Hematologic/Lymphatic: Hematologic/Lymphatic: Reports no additional hematologic/lymphatic complaints and Reports as per HPI Allergic/Immunologic: Allergic/Immunologic: Reports no additional allergic/immunologic complaints and Reports as per HPI Exam Narrative: Patient is laying in bed. Const: General: comfortable,
[2022-06-13 10:42] LABS: Lactic Acid Reflex 0.9 mmol/L (0.7-2.0)
--- NOTE | 2022-06-13 12:27 | PM.CNGS ---
Assessment and Plan Assessment and plan (1) Diarrhea: Code(s): R19.7 - Diarrhea, unspecified Status: Acute Assessment and Plan: This and an abnormal CT scan of the abdomen pelvis with signs of colitis are the reason that I was asked to see the patient. At this time the patient seems stable clinically. She denies abdominal pain today. She is hungry. On exam her abdomen is benign. I doubt that she has significant ischemia to the left colon however, this can be more chronic in nature and the differential is an infectious type of process. Much more unusual situation would be an inflammatory condition such as Crohn's disease or ulcerative colitis at her age. Agree with GI consultation for further evaluation and also stool studies. At the time of this dictation a stool sample for C diff just returned showing negative results. (Patient also has not been recently on antibiotics. Most recently it was for a UTI in March 2022). Serial troponins have been normal and she also has normal lactic acid levels. In view of the patient's mild Hemoccult positivity and signs of possible blood in the stool would hold off on anticoagulation for now. Will get a three view of the abdomen in a.m. 06/14 to recheck for any signs of obstruction or free air. I agree with repeat of a.m. labs (2) Laceration: Status: Acute Assessment and Plan: At the time of her syncopal episode the patient fell forward and hit her chin. She had about a 2 cm laceration that is sutured from the ER. (3) Syncope and collapse: Code(s): R55 - Syncope and collapse Status: Acute Assessment and Plan: Agree with internal medicine/ hospitalist workup regarding this including planned echocardiogram and carotid Doppler studies. (4) Essential hypertension: Code(s): I10 - Essential (primary) hypertension Status: Acute Assessment and Plan: Okay with me to continue current medications depending on her current blood pressures. (5) Hypothyroidism: Qualifiers: Hypothyroidism type: unspecified Qualified Code(s): E03.9 - Hypothyroidism, unspecified Code(s): E03.9 - Hypothyroidism, unspecified Status: Acute Assessment and Plan: TSH has returned in the normal range. Patient on thyroid replacement therapy. History of Present Illness Consult details Consult date: 06/13/22 Reason for consult: other ( colitis) Requesting physician: Bradley Landis MD Narrative: This is a 67-year-old White female with past medical history significant for hypothyroidism, hypertension and 1 previous syncopal episode in about 2018. The patient came to the emergency room yesterday afternoon after having a syncopal episode. She has also been having too numerous to count diarrhea? stools. She denies any vomiting but has had, some nausea no abdominal pain, no coffee-ground emesis, no hematemesis, no bright red blood per rectum, no melena, no fevers, no rigors, no chills. She has had unintentional weight loss due to a stress over the course of a year.? She states that she is in a 10 year plan for her colonoscopy as her previous one that was approximately 2-3 years ago was normal. she denies any changes in her stoosl character and actually had been somewhat constipated prior to her episode during the day on 03/2022. Preliminary ED workup was significant for CT of abdomen and pelvis was reported as: thickening of the splenic flexure and descending colon with lack of hyperemia of the mucosa suggestive of colitis. No mention of poor contrast in the vessels to the bowel on the study. Patient states today that she is not been on antibiotics recently. Most recently in March of this year was on Macrobid and a cephalosporin for UTI. They BC last night was normal as was her lactic acid. However this morning her white count was up to 15,000. [facility] Past Medical History Medical History (Updated 06/13/22 @ 16:42 by
[2022-06-13 12:54] LABS: Toxigenic C. Diff NEGATIVE (NEGATIVE)
--- NOTE | 2022-06-13 16:38 | WPDGICN ---
Assessment and Plan Assessment and plan (1) Colitis: Code(s): K52.9 - Noninfective gastroenteritis and colitis, unspecified Status: Acute Assessment and Plan: previous presentation 2019 with possible ischemic colitis most likely similar finding again, also treated for possible infectious with antibiotics (she had chills) tolerating diet less abdominal discomfort (2) Diarrhea: Code(s): R19.7 - Diarrhea, unspecified Status: Acute Assessment and Plan: ischemic vs infectious surgery evaluated patient exam benign (3) Syncope and collapse: Code(s): R55 - Syncope and collapse Status: Acute Assessment and Plan: from colitis monitor (4) Leukocytosis: Code(s): D72.829 - Elevated white blood cell count, unspecified Status: Acute (5) Laceration: Status: Acute Assessment and Plan: s/p sutures GI Consult Note Consult date/time: 06/13/22 16:38 Reason for consult: colitis HPI: Vito Fuentes is a 67 year old female with?history significant for hypothyroidism, hypertension.?She came to the emergency room?after having a syncopal episode. She first started with episode of diarrhea (at baseline she is constipated), also chills with sweating, then fell down and had facial trauma. Last colonoscopy [address] Nunes found mild segmental left colitis ? ischemic. ED workup was significant for CT of abdomen and pelvis?that showed left sided colitis ? ischemic, normal hb, wbc 15k. No obvious rectal bleeding. Review of Systems Constitutional: Constitutional: Denies fever(s), Denies poor appetite and Reports weight loss Eyes: Eyes: Denies change in vision ENT: Denies dysphagia, Denies vertigo, Denies dizziness and Denies odynophagia Cardiovascular: Cardiovascular: Denies chest pain, Denies leg edema and Denies dyspnea Respiratory: Respiratory: Denies chest congestion, Denies cough and Denies dyspnea Gastrointestinal: Gastrointestinal: Denies abdominal pain, Denies melena, Denies hematochezia, Denies change in stool character, Denies dysphagia, Denies dyspepsia, Denies heartburn, Reports diarrhea, Reports nausea, Denies odynophagia and Denies vomiting Genitourinary: Genitourinary: Denies dysuria Musculoskeletal: Musculoskeletal: Denies deformity, Denies arthralgias and Denies limited range of motion Integumentary/Breasts: Skin/Breast: Denies rash and Reports wounds Comments: Patient has bruising on her face due to fall. Sutures applied in the ER on her chin due to fall. Patient has tenderness on cheek bones and head. Neurologic: Denies vertigo, Denies dizziness, Denies focal weakness, Denies Sensory deficit (Neuro) and Denies weakness Psychiatric: Psychiatric: Reports no additional psychiatric complaints and Reports as per HPI Endocrine: Endocrine: Reports no additional endocrine complaints, Reports as per HPI and Denies fatigue Hematologic/Lymphatic: Hematologic/Lymphatic: Reports no additional hematologic/lymphatic complaints and Reports as per HPI Allergic/Immunologic: Allergic/Immunologic: Reports no additional allergic/immunologic complaints and Reports as per HPI PMFSH Past Medical History Medical History (Updated 06/13/22 @ 16:42 by Anibal Gonzalez MD) Colitis Cough Essential hypertension Hypothyroidism Leukocytosis Stenosis of larynx Surgical History Surgical History (Updated 06/13/22 @ 12:31 by Kendrick Sainz MD) History of laryngoscopy for stenosis of sub glottal larynx /trachea History of vaginal hysterectomy Family History Family History Sibling Hypertension Mother Family history of kidney disease Father Family history of lung disease Social History Social History Smoking status: Never smoker Second hand tobacco smoke exposure: No Alcohol intake: never Alcohol use details:
[2022-06-13] MEDS: metroNIDAZOLE 500 MG/ISO 100ML 500 MG/100 ML BAG 100 MG IVPB (19:00)
[2022-06-13 19:05] LABS: IFOB Positive Control Positive; Immunochemical Fecal Occult Bl Positive (N)
[2022-06-14] VITALS (8 sets, daily range): BP systolic 122–146; BP diastolic 61–70; PULSE 60–80; RESP 16–20; TEMP 35.6–36.6; O2SAT 99–100
[2022-06-14] MEDS: metroNIDAZOLE 500 MG/ISO 100ML 500 MG/100 ML BAG 100 MG IVPB ×2 (02:27→11:24)
[2022-06-14] MEDS: LEVOTHYROXINE SODIUM 50 MCG TABLET FEED TUBE (05:32)
[2022-06-14 06:18] LABS: Basophils Percent Auto 0.3 % (0.2-1.2); Eosinophils Percent Auto 0.2 % (0-4.4); Hematocrit 33.9 % (37.0-47.0); Immature Granulocyte Absolute 0.06 K/mm3 (0.00-0.031); Immature Granulocyte Percent A 0.5 % (0-0.5); Lymphocytes Absolute Auto 1.42 K/mm3 (0.9-3.2); Lymphocytes Percent Auto 10.8 % (18.3-44.2); Mean Corpuscular HGB Conc 32.4 g/dl (32-36); Mean Corpuscular Hemoglobin 29.6 pg (26-34); Mean Corpuscular Volume 91.4 fl (80-100); Mean Platelet Volume 9.9 fl (7.4-10.4); Monocytes Percent Auto 7.4 % (2.6-8.5); Neutrophils Absolute Auto 10.6 K/mm3 (1.3-6.7); Neutrophils Percent Auto 80.8 % (45.5-73.1); Platelet Count Result 185 k/mm3 (150-375); Red Blood Count 3.71 M/mm3 (4.2-5.4); Red Cell Distribution Width 12.7 % (11.5-14.5); White Blood Count 13.1 K/mm3 (4.5-10.0)
[2022-06-14 06:20] LABS: INR 1.2
[2022-06-14 06:24] LABS: Alanine Aminotransferase 16 U/L (6-35); Albumin Level 3.3 g/dL (3.5-5.1); Alkaline Phosphatase 82 U/L (38-126); Anion Gap 6 mmol/L (8-16); Aspartate Amino Transferase 24 U/L (14-36); Bilirubin,Total 0.8 mg/dL (0.2-1.3); Blood Urea Nitrogen 11 mg/dL (7-17); Calcium 8.2 mg/dL (8.4-10.2); Carbon Dioxide 24 mmol/L (22-30); Chloride 106 mmol/L (98-107); Estimated CRCL calculation 66 ml/min; Estimated Glomerular Filt Rate > 60; Glucose 109 mg/dL (65-110); Potassium 3.6 mmol/L (3.4-5.0); Sodium 136 mmol/L (137-145)
[2022-06-14 06:54] LABS: Erythrocyte Sedimentation Rate 26 mm/hr (0-20)
--- NOTE | 2022-06-14 09:19 | P.DS_ITS ---
DS: Admitting Diagnosis Discharge Date 06/14/2022 Admitting Diagnosis Diarrhea and syncope DS: Discharge Diagnosis Discharge Diagnosis (1) Syncope and collapse: Code(s): R55 - Syncope and collapse Status: Acute Assessment and Plan: * telemetry discontinued today * CT abdomen and pelvis revealed colitis with possible ischemia in descending colon * echo, US carotids b/l and orthostatics ordered and all were within normal limits * Patient having some difficulty recalling events surrounding syncopal episode. * This has been improving day-to-day since arrival to the floor. CT of head did not show any acute intracranial process. (2) Diarrhea: Code(s): R19.7 - Diarrhea, unspecified Status: Acute Assessment and Plan: * continue to monitor * general surgery has been consulted-spoke with Dr. Sainz, he states that he does not believe patient has ischemic bowel. Dr. Sainz agrees with the course of antibiotic treatment. Differentials include viral or bacterial colitis, ischemic bowel, chronic ischemia, inflammatory bowel. * GI has seen patient. When I spoke to Dr. Figueroa he agreed with patient discharge and a follow-up with him. * stool studies pending and well discuss results with Dr. Figueroa blood culture pending-patient will be notified with results if necessary * Hemoccult-positive. This is most likely due to inflammation in the bowel. * C. diff negative * WBC count today was 13.1 and trending down, continue on 750 mg Levaquin and 500 mg Flagyl (3) Essential hypertension: Code(s): I10 - Essential (primary) hypertension Status: Acute Assessment and Plan: * Continuing blood pressure medications at home (4) Hypothyroidism: Qualifiers: Hypothyroidism type: unspecified Qualified Code(s): E03.9 - Hypothyroidism, unspecified Code(s): E03.9 - Hypothyroidism, unspecified Status: Acute Assessment and Plan: * continue levothyroxine * TSH 1.4 (5) Laceration: Status: Acute Assessment and Plan: * Patient has laceration on the chin, sutures were placed in the ER on 06/12/2022 * Suture site looks clean and healing well * Patient has some bruising: Cheekbones * Patient states tenderness to the head her she had fallen and hit it * CT head revealed no acute intracranial process * Follow-up with primary care provider outpatient for suture removal. (6) Weight loss: Code(s): R63.4 - Abnormal weight loss Status: Acute Assessment and Plan: * Unintentional weight loss of 30 lb in the past year * Patient says she has had a lot of stressors at home and marital issues * States that she knows she should be more aware of eating. Agrees to follow-up with primary care provider for nutritional needs. DS: Summary Hospital Course Reason for hospitalization: Colitis Hospital Course: Patient presented to ER on 06/12/2022 due to syncopal episode and diarrhea. Patient states that she was not feeling well while she was watching her grandson. She said that her stomach was upset and she felt as if she had to use the restroom. She remembers feeling lightheaded and waking up on the ground. Patient's son-in-law reportedly had to do CPR on her, due to him thinking she was not breathing. According to family members, patient had bowel movement after syncopal episode. Once EMT arrived patient had a subsequent syncopal event. Patient did not have diarrhea prior to syncope
--- NOTE | 2022-06-14 09:19 | PM.DS ---
DS: Admitting Diagnosis Discharge Date 06/14/2022 Admitting Diagnosis Diarrhea and syncope DS: Discharge Diagnosis Discharge Diagnosis (1) Syncope and collapse: Code(s): R55 - Syncope and collapse Status: Acute Assessment and Plan: telemetry discontinued today CT abdomen and pelvis revealed colitis with possible ischemia in descending colon echo, US carotids b/l and orthostatics ordered and all were within normal limits Patient having some difficulty recalling events surrounding syncopal episode. This has been improving day-to-day since arrival to the floor. CT of head did not show any acute intracranial process. (2) Diarrhea: Code(s): R19.7 - Diarrhea, unspecified Status: Acute Assessment and Plan: continue to monitor general surgery has been consulted-spoke with Dr. Sainz, he states that he does not believe patient has ischemic bowel. Dr. Sainz agrees with the course of antibiotic treatment. Differentials include viral or bacterial colitis, ischemic bowel, chronic ischemia, inflammatory bowel. GI has seen patient. When I spoke to Dr. Figueroa he agreed with patient discharge and a follow-up with him. stool studies pending and well discuss results with Dr. Figueroa blood culture pending-patient will be notified with results if necessary Hemoccult-positive. This is most likely due to inflammation in the bowel. C. diff negative WBC count today was 13.1 and trending down, continue on 750 mg Levaquin and 500 mg Flagyl (3) Essential hypertension: Code(s): I10 - Essential (primary) hypertension Status: Acute Assessment and Plan: Continuing blood pressure medications at home (4) Hypothyroidism: Qualifiers: Hypothyroidism type: unspecified Qualified Code(s): E03.9 - Hypothyroidism, unspecified Code(s): E03.9 - Hypothyroidism, unspecified Status: Acute Assessment and Plan: continue levothyroxine TSH 1.4 (5) Laceration: Status: Acute Assessment and Plan: Patient has laceration on the chin, sutures were placed in the ER on 06/12/2022 Suture site looks clean and healing well Patient has some bruising: Cheekbones Patient states tenderness to the head her she had fallen and hit it CT head revealed no acute intracranial process Follow-up with primary care provider outpatient for suture removal. (6) Weight loss: Code(s): R63.4 - Abnormal weight loss Status: Acute Assessment and Plan: Unintentional weight loss of 30 lb in the past year Patient says she has had a lot of stressors at home and marital issues States that she knows she should be more aware of eating. Agrees to follow-up with primary care provider for nutritional needs. DS: Summary Hospital Course Reason for hospitalization: Colitis Hospital Course: Patient presented to ER on 06/12/2022 due to syncopal episode and diarrhea. Patient states that she was not feeling well while she was watching her grandson. She said that her stomach was upset and she felt as if she had to use the restroom. She remembers feeling lightheaded and waking up on the ground. Patient's son-in-law reportedly had to do CPR on her, due to him thinking she was not breathing. According to family members, patient had bowel movement after syncopal episode. Once EMT arrived patient had a subsequent syncopal event. Patient did not have diarrhea prior to syncope. Patient stated that she has a history of constipation. She does not know when her last bowel movement was prior to diarrhea onset. Patient said that in 2018 she had a similar episode of syncope with an illness. She has had unintentional weight loss of 30 lb in past last year. Patient has had some difficulty recalling events surrounding syncopal episode. Patient was worked up for syncope and diarrhea. Patient's initial labs did not reveal any signs of infect
--- NOTE | 2022-06-14 09:52 | PM.PNGS ---
Progress Note: A&P Assessment and Plan (1) Colitis: Code(s): K52.9 - Noninfective gastroenteritis and colitis, unspecified Status: Acute Assessment and Plan: currently unknown etiology. Possibilities include infectious versus ischemic. Also entertain the possibility of inflammatory bowel process. Stool studies, some still pending. C diff was negative. If infectious etiology pretty much ruled out by discharge consider a more mild anti-platelet therapy until further studies are completed to better determine the source of her colitis. This could be done with just a baby aspirin once a day. Patient would need to monitor her stools and consider calling GI or going back to the ER if she began having bloody bowel movements. (2) Weight loss: Code(s): R63.4 - Abnormal weight loss Status: Acute Assessment and Plan: Unknown etiology. Patient seems confident she will try to increase protein and fiber in her diet to do better. (3) Leukocytosis: Code(s): D72.829 - Elevated white blood cell count, unspecified Status: Acute Assessment and Plan: Somewhat improved today. Could consider short-term 5-7 days of Levaquin and Flagyl for treatment of possibility of infectious colitis. (4) Laceration: Status: Acute Assessment and Plan: This is on the patient's face, ( point of the chin ) there are some external sutures which probably should be removed around day 7 so early next week Saturday, Saturday, or Saturday would probably work. Suspect her PCP can do this when they see her in follow-up. These were placed by the ER physician during her initial evaluation earlier this week. Might be arroyo to apply some Steri-Strips upon removal of the sutures. If patient discharged she could cleanse the area with peroxide once or twice a day and apply small amount of triple antibiotic ointment over the sutures until they were removed to help lower the chances of infection. (5) Diarrhea: Code(s): R19.7 - Diarrhea, unspecified Status: Acute Assessment and Plan: Seems to be slowing at this point. (6) Syncope and collapse: Code(s): R55 - Syncope and collapse Status: Acute Assessment and Plan: Continuing workup in progress by Medicine/hospitalist. (7) Essential hypertension: Code(s): I10 - Essential (primary) hypertension Status: Acute (8) Hypothyroidism: Qualifiers: Hypothyroidism type: unspecified Qualified Code(s): E03.9 - Hypothyroidism, unspecified Code(s): E03.9 - Hypothyroidism, unspecified Status: Acute Assessment and Plan: TSH okay Continuing home med. Subjective Subjective Date/Time Seen: 06/14/22 09:52 patient is sitting up in the bed starting D breakfast when I entered the room. Denies abdominal pain. Cannot remember well whether not she has had bowel movements overnight. There are 2 recorded since midnight on the nursing notes. Patient still wants to wear a depends because she is afraid if she tries to pass gas there may be some liquid stool that comes out. She is not having abdominal cramping or other problems at this time. She tolerated some liquids and pudding last night for supper. Review of Systems Review of Systems: All systems reviewed & are unremarkable except as noted in HPI and below Constitutional: Constitutional: Reports as per HPI, Denies chills and Denies fever(s) Cardiovascular: Cardiovascular: Denies chest pain and Denies dyspnea Respiratory: Respiratory: Reports no additional respiratory complaints and Denies dyspnea Gastrointestinal: Gastrointestinal: Reports as per HPI, Denies bloating, Denies dysphagia and Denies nausea Genitourinary: Comments: States I do feel some gurgling down in my abdomen Musculoskeletal: Musculoskeletal: Reports no additional musculoskeletal complaints Exam Const: General: cooperative, comfortable, alert and aw
--- NOTE | 2022-06-14 15:05 | WPDGIPROGNO ---
Progress Note: A&P Assessment and Plan (1) Colitis: Code(s): K52.9 - Noninfective gastroenteritis and colitis, unspecified Status: Acute Assessment and Plan: most likely ischemic colitis again (last episode few years ago and confirmed by colonoscopy) doing better with medical rx ok to go home and will arrange colonoscopy in few more weeks to assess healing she has been getting abx (2) Leukocytosis: Code(s): D72.829 - Elevated white blood cell count, unspecified Status: Acute (3) Diarrhea: Code(s): R19.7 - Diarrhea, unspecified Status: Acute Assessment and Plan: better (4) Syncope and collapse: Code(s): R55 - Syncope and collapse Status: Acute Assessment and Plan: no more episodes Subjective Date/time seen: 06/14/22 11:00 Interval history: doing much better today Review of Systems Review of Systems: All systems reviewed & are unremarkable except as noted in HPI and below Exam Const: General: comfortable and no acute distress HENMT: Face/Nose/Sinus: Normal nares present Eyes: General: appearance normal, both eyes and all related structures Neck: Neck: no JVD Resp: Auscultation: clear to auscultation bilaterally Cardio: Rate: regular rate Rhythm: regular rhythm GI: Inspection: non-distended GI Palp: Yes Soft to palpation Skin: General skin exam: normal color Neuro: General: gait normal Speech: normal speech Extrem: General: normal to inspection Psych: Mental Status: mental status grossly normal Objective Data Vital Signs Vital Signs: Vital Signs - 24 hr 06/13/22 16:45 06/13/22 16:00 06/13/22 16:45 Temperature Pulse Rate 78 Respiratory Rate Blood Pressure 152/72 H 140/63 Pulse Oximetry Oxygen Delivery 06/13/22 16:45 06/13/22 20:00 06/13/22 21:47 Temperature 99.3 F Pulse Rate 78 72 Respiratory Rate 16 20 Blood Pressure 130/69 134/66 Pulse Oximetry 100 98 Oxygen Delivery Room Air 06/13/22 20:00 06/14/22 00:00 06/14/22 04:00 Temperature Pulse Rate 98 80 74 Respiratory Rate Blood Pressure Pulse Oximetry Oxygen Delivery 06/14/22 06:00 06/14/22 08:00 06/14/22 13:59 Temperature 97.9 F 97.9 F Pulse Rate 64 60 80 Respiratory Rate 20 16 Blood Pressure 122/61 138/65 Pulse Oximetry 99 100 Oxygen Delivery 06/14/22 14:10 06/14/22 14:11 06/14/22 14:11 Temperature 96.0 F L Pulse Rate 76 Respiratory Rate 18 Blood Pressure 143/69 H 146/66 H 141/70 H Pulse Oximetry 100 Oxygen Delivery Intake/Output Intake/Output: Intake & Output 06/11/22 06/12/22 06/13/22 06/14/22 23:59 23:59 23:59 23:59 Intake Total 1000 1250 410 Output Total 910 800 Balance 1000 340 -390 Meds/Results Medications: Active Medications Generic Name Dose Route Start Last Admin Trade Name Freq PRN Reason Stop Dose Admin Levofloxacin/Dextrose 750 mg in 150 mls @ 100 mls/hr 06/13/22 10:00 06/14/22 12:58 Levaquin 750 Mg/D5w 150 Ml IVPB 100 mls/hr Q24H ZAY Administration Metronidazole 500 mg in 100 mls @ 100 mls/hr 06/13/22 19:00 06/14/22 02:27 Flagyl 500 Mg/Iso Soln 100 Ml IVPB 100 mls/hr Q8H ZAY Administration Levothyroxine Sodium 50 mcg 06/13/22 06:30 06/14/22 05:32 Levothyroxine Sodium 50 Mcg Tablet FEED TUBE 50 mcg DAILY@0630 ZAY Administration Perflutren Lipid Microsphere 0 ml 06/13/22 11:56 Perflutren Lipid Microspheres 1.5 Ml Vial Diluted To 10 Ml Total Volume IV PUSH 06/15/22 11:57 ONCE PRN syncope Protocol Radiology Results: ITS Impressions Chest X-Ray 06/12/22 16:59 IMPRESSION: 1. No acute cardiopulmonary abnormality. Head CT 06/12/22 18:03 IMPRESSION: No acute intracranial process. Abdomen/Pelvis CT 06/12/22 18:23 IMPRESSION: Colitis, with CT findings concerning for bowel ischemia in the descending colon. Abdomen X-Ray 06/13/22 16:13 IMPRESSIO
--- NOTE | 2022-06-18 10:12 | PC.NURSE ---
Blood cx and Stool cx are negative.
[2022-06-20 22:09] LABS: ANCA Screen Negative (Negative); Myeloperoxidase Ab <1.0 AI (<1.0); Proteinase-3 Ab <1.0 AI (<1.0); S cerevisiae Ab (IgA) 8.6 U (<=20.0); S cerevisiae Ab (IgG) 5.1 U (<=20.0)
--- NOTE | 2022-06-26 10:27 | PC.NURSE ---
IBD panel is negative. Dr. Fredi mcnally.
== END 2022-06-14 15:10 | disposition home or self-care (01) ==
LOC: ANHED 17:01 → ANH3MEDSUR 06-13 01:53
PROVIDERS: Emergency Medicine; Internal Medicine Critical Care Medicine; Admitting Provider Internal Medicine; Emergency Provider Emergency Medicine; PCP Family Medicine; Visit Provider Internal Medicine
DX: R55 Syncope and collapse (principal); K52.9 Noninfective gastroenteritis and colitis, unspecified; I11.9 Hypertensive heart disease without heart failure; E03.9 Hypothyroidism, unspecified; R19.5 Other fecal abnormalities; S01.81XA Laceration without foreign body of other part of head, initial encounter; R11.10 Vomiting, unspecified; F10.90 Alcohol use, unspecified, uncomplicated; Z23 Encounter for immunization; R94.31 Abnormal electrocardiogram [ECG] [EKG]; G93.89 Other specified disorders of brain; D72.829 Elevated white blood cell count, unspecified; R63.4 Abnormal weight loss; Z20.822 Contact with and (suspected) exposure to COVID-19; R90.82 White matter disease, unspecified; Z79.890 Hormone replacement therapy; Z68.20 Body mass index [BMI] 20.0-20.9, adult; Z79.899 Other long term (current) drug therapy; Z82.49 Family history of ischemic heart disease and other diseases of the circulatory system; Z84.1 Family history of disorders of kidney and ureter; Z83.6 Family history of other diseases of the respiratory system
CPT/HCPCS: 36415; 70450; 71045; 74019; 74177; 80053; 81001; 82274; 83605; 83735; 84443; 84484; 85025; 85610; 85652; 86036; 86671; 87040; 87045; 87269; 87272; 87427; 87493; 87636; 90471; 90715; 93005; 93306; 93880; 96361; 96365; 96366; 96367; 96374; 99285; A9270; G0378; J1956; J2405; J7030; Q9967

== ENCOUNTER → 2022-07-28 10:48 | Outpatient (CLI) | payer MEDICARE, SELFPAY ==
--- NOTE | ~2022-07-28 | MM_ITS ---
EXAMINATION: MM screening damien BI w phuong HISTORY: Screening mammogram TECHNIQUE: Craniocaudal and mediolateral oblique 3-D tomosynthesis images were obtained and synthetic 2-D images were generated. CAD analysis was submitted and interpreted. COMPARISON: diagnostic right mammogram and limited right breast ultrasound examination 07/25/2021 bilateral screening mammogram 02/04/2020 bilateral diagnostic mammogram and Limited bilateral breast ultrasound BREAST PARENCHYMAL COMPOSITION: There are scattered areas of fibroglandular density. FINDINGS: There is a biopsy marker on the right; history of prior benign right breast biopsy. Minimal benign bilateral breast calcifications. There is no evidence of suspicious mass, calcification, or a rchitectural distortion to suggest malignancy in either breast. There has been no suspicious interval change. IMPRESSION: 1. No mammographic evidence of malignancy. 2. Recommend routine screening mammography in one year. BI-RADS Category 2: Benign finding(s). Reviewed, dictated and finalized at location A. [employer]
== END ==
PROVIDERS: PCP Family Medicine; Visit Provider Obstetrics & Gynecology
DX: Z12.31 Encounter for screening mammogram for malignant neoplasm of breast (principal)
CPT/HCPCS: 77063; 77067

== ENCOUNTER 2022-07-31 00:25 | Day surgery (SDC) | payer MEDICARE, SELFPAY ==
[2022-07-17 15:00] VITALS: BMI 18.9
[2022-07-31 08:42] VITALS: BP 139/65; PULSE 58; RESP 16; TEMP 36.3; O2SAT 100
[2022-07-31] MEDS: LACTATED RINGERS 1,000 ML 150 ML IV CONT (08:45)
--- NOTE | 2022-07-31 09:17 | WPDANESEPPF ---
Anes - Initial Pre Proc Eval Procedure: Operation Date: 07/31/22 10:00 Proposed Procedures p Colonoscopy - Anibal Gonzalez MD Date/Time: 07/31/22 09:17 Surgeon: Anibal Gonzalez MD Pre Op Diagnosis: colitis Patient Data Age: 67 Gender: F Height: 1.63 m Weight: 49.1 kg Last Vital Signs Temp 97.4 F L 07/31/22 08:42 Pulse 58 L 07/31/22 08:42 Resp 16 07/31/22 08:42 BP 139/65 07/31/22 08:42 Pulse Ox 100 07/31/22 08:42 O2 Del Method Room Air 07/31/22 08:42 Allergies Allergy/AdvReac Type Severity Reaction Status Date / Time No Known Allergies Allergy Verified 07/31/22 08:41 Home Medications Medication Instructions Recorded Confirmed Type lisinopril 30 mg tablet 30 mg PO DAILY #90 tabs 07/04/22 07/31/22 Rx aspirin 81 mg tablet 81 mg PO DAILY 07/17/22 07/31/22 History levothyroxine 50 mcg tablet 50 mcg PO DAILY 07/17/22 07/31/22 History polyethylene glycol 3350 17 17 g PO DAILY 07/17/22 07/31/22 History gram/dose oral powder (Miralax) Patient hx anesthesia problems: none Family hx anesthesia problems: none Results Review: All pre-operative results and documents have been reviewed as part of the pre-operative evaluation. [facility] Past Medical History Medical History (Updated 07/05/22 @ 09:46 by Anibal Gonzalez MD) Colitis Constipation Cough Essential hypertension Hypothyroidism Leukocytosis Stenosis of larynx Surgical History Surgical History History of laryngoscopy for stenosis of sub glottal larynx /trachea History of vaginal hysterectomy Family History Family History Sibling Hypertension Mother Family history of kidney disease Father Family history of lung disease Social History Social History Smoking status: Never smoker Second hand tobacco smoke exposure: No Alcohol intake: never Alcohol use details: rare Substance use: never Substance use type: does not use Lack of Transportation: No Lack of Food: Never True Current Housing: I Have Housing Concerned About Future Housing: No Difficulty Paying Gas/Electric Bills: No Difficulty Paying for Meds: No Currently Unemployed: No Education: Trade/Vocational Certificate Difficulty w/ Childcare or Family Care: No Living arrangements: with family Gender identity (if verbalized by the patient): Female Sexual Orientation (if Verbalized by the Patient): Straight or Heterosexual Spiritual care concerns: No Anes - Eval Final PreProcedure Day of Procedure 07/31/22 09:17 Patient weight: normal Heart: regular rate and rhythm Lungs: clear to auscultation Airway: Mallampati scale class II Neurological: alert and oriented Last oral intake: >/= 8 hours ASA classification: II Emergent: no Anesthetic plan: proceed Anesthesia type and monitoring: general GIVS and standard monitoring Results Review: All pre-operative results and documents have been reviewed as part of the pre-operative evaluation. Informed Consent: The patient's anesthetic plan and its attendant risks and benefits were discussed with the patient/family/POA. Questions were solicited and answers provided to the satisfaction of the patient/family/POA.
--- NOTE | 2022-07-31 09:47 | WPDHPUPDATE1 ---
History and Physical Update Update Date/Time: 07/31/22 09:47 History and Physical has been reviewed, including an updated exam of the patient. There are NO changes in the patient's condition. Risks, benefits, and alternatives have been discussed and questions answered. Patient agrees to proceed with procedure.
[2022-07-31 10:08] VITALS: BP 119/46; PULSE 44; RESP 13; O2SAT 100
[2022-07-31 10:18] VITALS: BP 81/40; PULSE 48; RESP 13; O2SAT 100
[2022-07-31 10:28] VITALS: BP 98/45; PULSE 51; RESP 13; O2SAT 100
[2022-07-31 10:38] VITALS: BP 125/67; PULSE 57; RESP 19; O2SAT 100
== END 2022-07-31 11:12 | disposition home or self-care (01) ==
PROVIDERS: PCP Family Medicine; Visit Provider Internal Medicine Gastroenterology
PROC: 0DJD8ZZ Inspection of Lower Intestinal Tract, Via Natural or Artificial Opening Endoscopic (ICD-10-PCS; CPT 45378; principal; 2022-07-31 10:00)
DX: Z12.11 Encounter for screening for malignant neoplasm of colon (principal); K64.8 Other hemorrhoids; Z87.19 Personal history of other diseases of the digestive system; K59.00 Constipation, unspecified; I10 Essential (primary) hypertension; E03.9 Hypothyroidism, unspecified
CPT/HCPCS: G0121; J2704; J7120

== ENCOUNTER 2023-01-22 13:14 | Outpatient (CLI) | payer MEDICARE, SELFPAY ==
--- NOTE | ~2023-01-22 | MR_ITS ---
MRI of the brain Clinical History: Memory loss Technique: Axial and sagittal T1-weighted images were acquired. These were followed by axial T2-weigh jeaneth, diffusion weighted, gradient, and FLAIR images. Following intravenous administration of 10 cc Mu ltiHance gadolinium, T1-weighted fat-sat imaging was performed in the axial and coronal planes. Findings: There is no acute infarct, intracranial hemorrhage, or mass lesion. There are minimal chron ic white matter changes in the periventricular white matter bilaterally. Ventricles and subarachnoid spaces are unremarkable. Orbits are unremarkable. Paranasal sinuses and m astoid air cells are clear. Major intracranial flow voids appear intact. Sagittal midline structures are intact. No abnormal postcontrast enhancement identified. IMPRESSION: Minimal chronic microvascular ischemic changes, otherwise unremarkable exam. Reviewed, dictated and finalized at location M.
--- NOTE | ~2023-01-22 | US_ITS ---
EXAMINATION: US venous doppler [facility] DATE: 01/22/2023 14:17 INDICATION: M79.605 - Pain in left leg . TECHNIQUE: Grayscale images without and with compression and Doppler images of the bilateral lower ex tremity veins were obtained. COMPARISON: Leg pain. FINDINGS: The right common femoral vein, profunda (deep) femoral vein, femoral vein, popliteal vein, peroneal v ein, posterior tibial veins, gastrocnemius vein, and greater saphenous vein are patent. The left common femoral vein, profunda (deep) femoral vein, femoral vein, popliteal vein, peroneal v ein, posterior tibial veins, gastrocnemius vein, and greater saphenous vein are patent. IMPRESSION: 1. Patent bilateral lower extremity veins. No evidence of deep venous thrombosis. Reviewed, dictated and finalized at location K. IMPRESSION: 1. Patent bilateral lower extremity veins. No evidence of deep venous thrombos is.
== END 2023-01-22 13:15 | disposition home or self-care (01) ==
PROVIDERS: PCP Family Medicine; Visit Provider Physician Assistant
DX: R41.3 Other amnesia (principal); R29.6 Repeated falls; M79.605 Pain in left leg; M79.604 Pain in right leg
CPT/HCPCS: 70553; 93970; A9577

== ENCOUNTER 2023-09-30 16:40 | Outpatient (CLI) | payer MEDICARE, SELFPAY ==
[2023-09-30 17:33] LABS: Influenza A QL RT-PCR Negative (Negative); Influenza B QL RT-PCR Negative (Negative); RSV RNA, RT-PCR Negative (Negative); SARS-CoV-2 RNA PCR Negative (Negative)
== END 2023-09-30 16:41 | disposition home or self-care (01) ==
LOC: ANHLAB 16:43
PROVIDERS: PCP Family Medicine; Visit Provider Physician Assistant Medical
DX: U07.1 COVID-19 (principal)
CPT/HCPCS: 87637

== ENCOUNTER 2024-01-13 10:13 | Outpatient (CLI) | payer MEDICARE, SELFPAY ==
--- NOTE | ~2024-01-13 | MM_ITS ---
EXAMINATION: MM screening damien BI w phuong HISTORY: Screening TECHNIQUE: Craniocaudal and mediolateral oblique 3-D tomosynthesis images were obtained and synthetic 2-D images were generated. CAD analysis was submitted and interpreted. COMPARISON: Comparison to multiple prior studies sequentially, with oldest reviewed study dated 07/06. BREAST PARENCHYMAL COMPOSITION: Not dense: There are scattered areas of fibroglandular density. FINDINGS: The left breast is stable without evidence for malignancy. There are developing asymmetries of the right breast. IMPRESSION: 1. Developing right breast asymmetries. 2. Additional mammographic views and possible breast ultrasound are recommended. BI-RADS CATEGORY 0 - INCOMPLETE STUDY, NEED ADDITIONAL IMAGING EVALUATION. Reviewed, dictated and finalized at location B. IMPRESSION: 1. Developing right breast asymmetries. 2. Additional mammographic views and possible breast ultrasound are recommended . BI-RADS CATEGORY 0 - INCOMPLETE STUDY, NEED ADDITIONAL IMAGING EVALUATION.
== END 2024-01-13 10:14 ==
PROVIDERS: PCP Family Medicine; Visit Provider Nurse Practitioner Obstetrics & Gynecology
DX: Z12.31 Encounter for screening mammogram for malignant neoplasm of breast (principal); R92.8 Other abnormal and inconclusive findings on diagnostic imaging of breast
CPT/HCPCS: 77063; 77067